=== PATIENT | male | born 1975 | race Caucasian/White ===

== ENCOUNTER 2023-03-29 08:01 | Outpatient (RCR) | payer OTHER ==
[~2023-03-29 08:01] MED LIST: NORCO 325 MG-51 TAB PO
== END 2023-04-10 | disposition home or self-care (01) ==
LOC: WSOH
DX: S46.011D Strain of muscle(s) and tendon(s) of the rotator cuff of right shoulder, subsequent encounter (principal); Y99.0 Civilian activity done for income or pay